=== PATIENT | female | born 1965 | race Hispanic/Latino ===

== ENCOUNTER → 2022-03-21 | Outpatient (CLI) | LOC: M SOG 14:24 | PROVIDERS: ATTEND Physician Assistant | DX: M25.561 Pain in right knee (principal); M25.562 Pain in left knee ==

== ENCOUNTER → 2022-04-02 | Outpatient (REF) ==
[2022-04-02 13:57] LABS: RSV AMPLIFICATION NEGATIVE (NEGATIVE)
== END ==
LOC: M LABSMTC 10:41
PROVIDERS: ATTEND Family Medicine
DX: Z11.52 Encounter for screening for COVID-19 (principal)

== ENCOUNTER 2022-04-16 17:22 | Emergency (ER) | payer OTHER ==
[~2022-04-16] VITALS: Ht 165.1 cm; Wt 104.7 kg
[2022-04-16 17:22] VITALS: BP 125/71
[~2022-04-16 17:22] MED LIST: RALTEGRAVIR 400 MG TAB (ISENTRESS) PO SCH; TRUVADA 200MG/300MG TABLET PO SCH
[2022-04-16 18:19] LABS: BASO # 0.1 10^3/uL (0.0-0.2); BASO % 0.9 % (0.0-1.0); EOS # 0.4 10^3/uL (0.0-0.5); EOS % 4.9 % (0.0-3.0); HEMOGLOBIN 12.3 g/dl (12.0-15.5); LYMPH % 40.8 % (24.0-44.0); MEAN CORPUSCULAR HEMOGLOBIN 26.8 pg (27.0-33.0); MEAN CORPUSCULAR HGB CONC 31.5 g/dl (32.0-36.5); MONO # 0.6 10^3/uL (0.0-0.8); MONO % 7.9 % (2.0-8.0); NEUTROPHILS # 3.3 10^3/uL (1.5-8.5); NEUTROPHILS % 45.2 % (36.0-66.0); PLATELET COUNT, AUTOMATED 289 10^3/uL (150-450); RED BLOOD COUNT 4.59 10^6/uL (4.00-5.40); WHITE BLOOD COUNT 7.4 10^3/uL (4.0-10.0)
[2022-04-16] MEDS ORDERED: EXPOSURE KIT-ADULT 7 DAY SUPPLY PO ONE (18:20)
[2022-04-16 18:42] LABS: ALBUMIN 3.9 G/DL (3.2-5.2); ALKALINE PHOSPHATASE 84 U/L (46-116); ALT/SGPT 93 U/L (7.0-40); AST/SGOT 74 U/L (<34); BILIRUBIN,TOTAL 0.3 MG/DL (0.3-1.2); BLOOD UREA NITROGEN 17 MG/DL (9-23); CALCIUM LEVEL 9.1 MG/DL (8.5-10.1); CARBON DIOXIDE LEVEL 28 MMOL/L (20-31); CHLORIDE LEVEL 104 MMOL/L (98-107); CREATININE FOR GFR 0.93 MG/DL (0.55-1.30); GLOMERULAR FILTRATION RATE > 60.0 (>51); GLUCOSE, FASTING 130 MG/DL (60-100); POTASSIUM SERUM 3.5 MMOL/L (3.5-5.1); SODIUM LEVEL 138 MMOL/L (136-145); TOTAL PROTEIN 6.9 G/DL (5.7-8.2)
[2022-04-16] MEDS ORDERED: RALT40TA PO ×2 (18:44→18:52)
[2022-04-16] MEDS ORDERED: EMTR1TAB16 PO ×2 (18:44→18:52)
[2022-04-16 18:56] LABS: HEPATITIS B SURFACE ANTIGEN NEGATIVE (NEGATIVE)
[2022-04-16] MEDS ORDERED: TRUVADA 200MG/300MG TABLET PO ONE (19:00)
[2022-04-16] MEDS ORDERED: RALTEGRAVIR 400 MG TAB (ISENTRESS) PO ONE (19:00)
[2022-04-16 19:09] LABS: HIV SCREEN CENTAUR EXPOSED NEGATIVE (NEGATIVE)
[2022-04-16 19:17] LABS: HEPATITIS C VIRUS ABY INDEX < 0.0 INDEX (<0.8)
[2022-04-16 19:58] LABS: HEPATITIS B SURFACE ANTIBODY POSITIVE (POSITIVE)
== END 2022-04-16 19:02 | disposition home or self-care (01) ==
LOC: M ED 17:22
DX: S61.431A Puncture wound without foreign body of right hand, initial encounter (principal); Z77.21 Contact with and (suspected) exposure to potentially hazardous body fluids; W46.0XXA Contact with hypodermic needle, initial encounter; Y92.238 Other place in hospital as the place of occurrence of the external cause; Y99.0 Civilian activity done for income or pay; R74.01 Elevation of levels of liver transaminase levels; I10 Essential (primary) hypertension; G43.909 Migraine, unspecified, not intractable, without status migrainosus; Z91.012 Allergy to eggs

== ENCOUNTER 2022-09-20 08:32 | Emergency (ER) | payer BC, OTHER, SELFPAY ==
[~2022-09-20] VITALS: Ht 165.1 cm; Wt 95.5 kg
[~2022-09-20 08:32] MED LIST changes: +EMTR1TAB16 PO; +RALT40TA PO; -RALTEGRAVIR 400 MG TAB (ISENTRESS) PO SCH; -TRUVADA 200MG/300MG TABLET PO SCH
[2022-09-20] MEDS ORDERED: NS 1,000 ML IV SCH (09:45)
[2022-09-20] MEDS ORDERED: METOCLOPRAMIDE INJ 10MG/2ML VIAL IV ONE (09:45)
[2022-09-20] MEDS ORDERED: hydroCHLOROthiazide 12.5 MG CAPSULE PO ONE (09:50)
[2022-09-20 10:29] LABS: BASO # 0.1 10^3/uL (0.0-0.2); BASO % 1.4 % (0.0-1.0); EOS # 0.3 10^3/uL (0.0-0.5); EOS % 4.1 % (0.0-3.0); HEMATOCRIT 38.2 % (36.0-47.0); HEMOGLOBIN 12.2 g/dl (12.0-15.5); MEAN CORPUSCULAR HEMOGLOBIN 26.5 pg (27.0-33.0); MEAN CORPUSCULAR HGB CONC 31.9 g/dl (32.0-36.5); MONO # 0.6 10^3/uL (0.0-0.8); MONO % 9.6 % (2.0-8.0); NEUTROPHILS # 2.6 10^3/uL (1.5-8.5); NEUTROPHILS % 39.7 % (36.0-66.0); PLATELET COUNT, AUTOMATED 284 10^3/uL (150-450); WHITE BLOOD COUNT 6.6 10^3/uL (4.0-10.0)
[2022-09-20 10:40] LABS: PROTHROMBIN TIME 13.4 SECONDS (12.5-14.5)
[2022-09-20 10:44] LABS: D-DIMER QUANT 757.82 ng/ml (<500)
[2022-09-20 10:56] LABS: LIPASE 40 U/L (12-53)
[2022-09-20 10:57] LABS: CPK CREATINE PHOSPHOKINASE 347 U/L (34-145); MB/CK RELATIVE INDEX 1.15 (< OR =4)
[2022-09-20 10:58] LABS: ALBUMIN 3.9 G/DL (3.2-5.2); ALKALINE PHOSPHATASE 102 U/L (46-116); ALT/SGPT 115 U/L (7.0-40); AST/SGOT 80 U/L (<34); BILIRUBIN,DIRECT 0.1 MG/DL (<0.4); BILIRUBIN,TOTAL 0.4 MG/DL (0.3-1.2); BLOOD UREA NITROGEN 16 MG/DL (9-23); CALCIUM LEVEL 9.2 MG/DL (8.5-10.1); CARBON DIOXIDE LEVEL 28 MMOL/L (20-31); CHLORIDE LEVEL 106 MMOL/L (98-107); GLOMERULAR FILTRATION RATE > 60.0 (>51); GLUCOSE, FASTING 85 MG/DL (60-100); POTASSIUM SERUM 3.9 MMOL/L (3.5-5.1); SODIUM LEVEL 142 MMOL/L (136-145); TOTAL PROTEIN 6.8 G/DL (5.7-8.2)
[2022-09-20 10:59] LABS: THYROID STIMULATING HORMONE 1.259 uIU/ML (0.55-4.78)
[2022-09-20 11:00] LABS: FREE T4 0.91 NG/DL (0.89-1.76)
[2022-09-20] MEDS ORDERED: ISOVUE-370 76% 100ML VIAL As Ordered ONE (11:07)
[2022-09-20 11:46] LABS: CK-MB VALUE MASS 3.6 NG/ML (<3.6)
[2022-09-20 11:47] LABS: MB/CK RELATIVE INDEX 1.11 (< OR =4)
[2022-09-20] MEDS ORDERED: NS 500 ML IV ONE (12:45)
[2022-09-20 13:39] VITALS: BP 144/65; TEMP 97.4
[2022-09-20 13:47] VITALS: O2SAT 98
== END 2022-09-20 14:16 | disposition home or self-care (01) ==
LOC: M ED 08:32
DX: R55 Syncope and collapse (principal); I10 Essential (primary) hypertension; R51.9 Headache, unspecified; R07.9 Chest pain, unspecified; J45.909 Unspecified asthma, uncomplicated; G43.909 Migraine, unspecified, not intractable, without status migrainosus; K57.92 Diverticulitis of intestine, part unspecified, without perforation or abscess without bleeding; Z88.8 Allergy status to other drugs, medicaments and biological substances; Z91.012 Allergy to eggs; Z79.899 Other long term (current) drug therapy
CPT/HCPCS: 70450; 70544; 70551; 71046; 71275; 80048; 80076; 82550; 82553; 83690; 84439; 84443; 84484; 85025; 85379; 85610; 85730; 93005; 93041; 94760; 96361; 96374; 99285; J2765; Q9967

== ENCOUNTER → 2023-03-11 | Outpatient (CLI) | payer BC | LOC: M WHC 14:46 | PROVIDERS: ATTEND Nurse Practitioner Family | DX: Z12.31 Encounter for screening mammogram for malignant neoplasm of breast (principal) ==

== ENCOUNTER → 2023-03-11 | Outpatient (CLI) | payer BC ==
[2023-03-11 07:45] LABS: BASO # 0.1 10^3/uL (0.0-0.2); BASO % 0.8 % (0.0-1.0); EOS # 0.5 10^3/uL (0.0-0.5); EOS % 6.6 % (0.0-3.0); HEMATOCRIT 38.8 % (36.0-47.0); LYMPH # 2.7 10^3/uL (1.5-5.0); LYMPH % 37.2 % (24.0-44.0); MEAN CORPUSCULAR HEMOGLOBIN 26.1 pg (27.0-33.0); MEAN CORPUSCULAR HGB CONC 30.9 g/dl (32.0-36.5); MEAN CORPUSCULAR VOLUME 84.3 fl (80.0-96.0); MONO # 0.6 10^3/uL (0.0-0.8); MONO % 7.9 % (2.0-8.0); NEUTROPHILS # 3.4 10^3/uL (1.5-8.5); NEUTROPHILS % 47.2 % (36.0-66.0); PLATELET COUNT, AUTOMATED 271 10^3/uL (150-450); WHITE BLOOD COUNT 7.1 10^3/uL (4.0-10.0)
[2023-03-11 08:05] LABS: ERYTHROCYTE SEDIMENTATION RATE 19 mm/hr (0-30)
[2023-03-11 08:16] LABS: C REACTIVE PROTEIN QUANTITATIV < 0.40 MG/DL (<1.0)
[2023-03-11 08:18] LABS: ALBUMIN 3.5 G/DL (3.2-5.2); ALKALINE PHOSPHATASE 88 U/L (46-116); ALT/SGPT 74 U/L (7.0-40); AST/SGOT 47 U/L (<34); BILIRUBIN,TOTAL 0.4 MG/DL (0.3-1.2); BLOOD UREA NITROGEN 16 MG/DL (9-23); CALCIUM LEVEL 9.1 MG/DL (8.5-10.1); CARBON DIOXIDE LEVEL 30 MMOL/L (20-31); CHLORIDE LEVEL 105 MMOL/L (98-107); CHOLESTEROL LEVEL 178 MG/DL (<200); CHOLESTEROL RISK RATIO 3.68 (<5); CREATININE FOR GFR 0.81 MG/DL (0.55-1.30); GLOMERULAR FILTRATION RATE > 60.0 (>51); GLUCOSE, FASTING 98 MG/DL (60-100); HDL CHOLESTEROL 48.3 MG/DL (>40); LDL CHOLESTEROL 95.5 MG/DL (<100); NON-HDL-C 129.7 MG/DL; RHEUMATOID FACTOR QUANT < 3.5 IU/ML (<14); SODIUM LEVEL 137 MMOL/L (136-145); TOTAL PROTEIN 6.7 G/DL (5.7-8.2); TRIGLYCERIDES LEVEL 171 MG/DL (<150)
[2023-03-11 08:20] LABS: FREE T4 0.96 NG/DL (0.89-1.76); THYROID STIMULATING HORMONE 1.798 uIU/ML (0.55-4.78)
== END ==
LOC: M LAB 06:52
PROVIDERS: ATTEND Nurse Practitioner Family
DX: I10 Essential (primary) hypertension (principal)